=== PATIENT | female | born 1990 | race Hispanic/Latino ===

== ENCOUNTER → 2016-12-19 | Outpatient (CLI) | payer OTHER ==
[2016-12-19 14:50] LABS: BASO % 0.3 % (0.0-1.0); EOS # 0.2 K/mm3 (0.0-0.50); EOS % 2.8 % (0.0-3.0); LYMPH # 2.4 K/mm3 (1.5-6.5); LYMPH % 27.4 % (24.0-44.0); MEAN CORPUSCULAR HEMOGLOBIN 26.8 pg (27.0-33.0); MEAN CORPUSCULAR HGB CONC 32.1 g/dl (32.0-36.5); MEAN CORPUSCULAR VOLUME 83.5 fl (80.0-96.0); MONO # 0.3 K/mm3 (0.0-0.8); MONO % 3.6 % (0.0-5.0); NEUTROPHILS # 5.5 K/mm3 (1.8-7.7); WHITE BLOOD COUNT 8.7 K/mm3 (4.0-10.0)
[2016-12-19 14:58] LABS: ALBUMIN 3.8 GM/DL (3.2-5.2); ALBUMIN/GLOBULIN RATIO 1.12 (1.00-1.93); ALKALINE PHOSPHATASE 97 U/L (45-117); ALT/SGPT 13 U/L (12-78); ANION GAP 9 MEQ/L (8-16); AST/SGOT 14 U/L (15-37); BILIRUBIN,TOTAL 0.1 MG/DL (0.2-1.0); BLOOD UREA NITROGEN 13 MG/DL (7-18); CALCIUM LEVEL 8.6 MG/DL (8.5-10.1); CARBON DIOXIDE LEVEL 26 MEQ/L (21-32); CHLORIDE LEVEL 106 MEQ/L (98-107); CHOLESTEROL LEVEL 199 MG/DL (<200); CREATININE FOR GFR 0.61 MG/DL (0.55-1.02); FREE T4 0.86 NG/DL (0.76-1.46); GLOMERULAR FILTRATION RATE > 60.0 (>60); GLUCOSE, FASTING 84 MG/DL (70-105); SODIUM LEVEL 141 MEQ/L (136-145); TOTAL PROTEIN 7.2 GM/DL (6.4-8.2); TRIGLYCERIDES LEVEL 141 MG/DL (<150)
== END ==
LOC: M LAB 13:22
PROVIDERS: ATTEND Nurse Practitioner Adult Health
DX: E55.9 Vitamin D deficiency, unspecified (principal)

== ENCOUNTER 2017-04-06 23:52 | Emergency (ER) | payer OTHER ==
[~2017-04-06] VITALS: Ht 162.6 cm; Wt 100.0 kg
[2017-04-07] MEDS ORDERED: VITA1CAP40 PO (00:03)
[2017-04-07] MEDS ORDERED: ESCI10TA2 PO (00:03)
[2017-04-07] MEDS ORDERED: ONDANSETRON 4MG/2ML VIAL (J2405) IV ONE (00:30)
[2017-04-07] MEDS ORDERED: fentaNYL 100 MCG/2 ML INJECTION (J3010) IV ONE (00:30)
[2017-04-07 01:43] LABS: BASO % 0.3 % (0.0-1.0); EOS # 0.2 K/mm3 (0.0-0.50); EOS % 2.9 % (0.0-3.0); LARGE UNSTAINED CELL # 0.2 K/mm3 (0.0-0.4); LYMPH # 2.9 K/mm3 (1.5-6.5); LYMPH % 33.3 % (24.0-44.0); MEAN CORPUSCULAR HEMOGLOBIN 26.3 pg (27.0-33.0); MEAN CORPUSCULAR HGB CONC 32.5 g/dl (32.0-36.5); MEAN CORPUSCULAR VOLUME 80.8 fl (80.0-96.0); MONO # 0.3 K/mm3 (0.0-0.8); MONO % 3.7 % (0.0-5.0); NEUTROPHILS % 57.8 % (36.0-66.0); PLATELET COUNT, AUTOMATED 228 k/mm3 (150-450); WHITE BLOOD COUNT 8.7 K/mm3 (4.0-10.0)
--- NOTE | 2017-04-07 01:50 | REPUSA ---
CLINICAL HISTORY: Abdominal pain. TECHNIQUE: Realtime sonographic images were obtained in multiple projections. COMMENTS: The liver is of normal size, parenchyma demonstrates normal echogenicity. No discrete hepatic mass is seen. There is no intra or extrahepatic biliary ductal dilatation. CBD measures 2 mm. The gallbladder is ph ysiologically distended with evidence of calculi. The gallbladder wall is not thickened and there is no pericholecystic fluid. There is no abdominal ascites. The right kidney measures 11.3x5.1x5.7 cm, free of hydronephrosis. IMPRESSION: Cholelithiasis. Thank you for your kind referral of this patient.
[2017-04-07 01:57] LABS: CONTROL LINE HCG INT CTR LINE PRESENT
[2017-04-07 02:41] LABS: ALBUMIN 3.9 GM/DL (3.2-5.2); ALBUMIN/GLOBULIN RATIO 1.05 (1.00-1.93); ALKALINE PHOSPHATASE 87 U/L (45-117); ALT/SGPT 15 U/L (12-78); ANION GAP 9 MEQ/L (8-16); AST/SGOT 18 U/L (15-37); BILIRUBIN,DIRECT < 0.1 MG/DL (0.0-0.2); BILIRUBIN,TOTAL 0.2 MG/DL (0.2-1.0); BLOOD UREA NITROGEN 10 MG/DL (7-18); CALCIUM LEVEL 9.1 MG/DL (8.5-10.1); CARBON DIOXIDE LEVEL 24 MEQ/L (21-32); CHLORIDE LEVEL 108 MEQ/L (98-107); CREATININE FOR GFR 0.67 MG/DL (0.55-1.02); GLOMERULAR FILTRATION RATE > 60.0 (>60); GLUCOSE, FASTING 112 MG/DL (70-105); POTASSIUM SERUM 3.9 MEQ/L (3.5-5.1); SODIUM LEVEL 141 MEQ/L (136-145); TOTAL PROTEIN 7.6 GM/DL (6.4-8.2)
[2017-04-07 03:17] VITALS: BP 178/106
[2017-04-07] MEDS ORDERED: PERC5TAB12 PO (03:26)
[2017-04-07] MEDS ORDERED: ZOFR4TAB3 PO (03:27)
[2017-04-07] MEDS ORDERED: NORCO 5/325MG TABLET (BULK FOR ED) PO ONE (03:30)
[2017-04-07] MEDS ORDERED: MORPHINE 4 MG/ML 1ML SYRINGE IV ONE (03:30)
--- NOTE | 2017-04-07 20:26 | ECGEPIP ---
Stationary ECG Study [facility] - ED Test Date: 2017-04-07 Pat Name: YAEL LR Department: Room: - Gender: F Batter Out: mark anthony : 1990 Requested By: DEJAH Turcios Order Number: [id number] Reading MD: Merry Ordaz Measurements Intervals Mamou Rate: 80 P: 16 NH: 170 QRS: 20 QRSD: 89 T: 29 QT: 355 QTc: 412 Interpretive Statements SINUS RHYTHM NO PRIOR FOR COMPARISON Electronically Signed On 04-07-2017 20:26:21 EDT by Merry Ordaz
== END 2017-04-07 04:02 | disposition home or self-care (01) ==
LOC: M ED 23:52
DX: K81.9 Cholecystitis, unspecified (principal); Z98.84 Bariatric surgery status
CPT/HCPCS: 76705; 80048; 80076; 81001; 83690; 84703; 85025; 93000; 93041; 96374; 96375; 99284; J2405; J3010

== ENCOUNTER 2017-04-23 13:41 | Day surgery (SDC) | payer OTHER ==
[~2017-04-23] VITALS: Ht 162.6 cm; Wt 99.8 kg
[~2017-04-23 13:41] MED LIST: BUPIVACAINE/EPIN 0.25% 30 ML VIAL As Ordered ONE; ESCI10TA2 PO; PERC5TAB12 PO; VITA1CAP40 PO; ZOFR4TAB3 PO
[2017-04-23] MEDS ORDERED: LR 1,000 ML IV SCH ×2 (13:45→17:00)
[2017-04-23] MEDS ORDERED: MIDAZOLAM INJ 2 MG/2 ML VIAL (J2250) As Ordered ONE (14:21)
[2017-04-23] MEDS ORDERED: fentaNYL 100 MCG/2 ML INJECTION (J3010) As Ordered ONE (14:21)
[2017-04-23 14:44] LABS: CONTROL LINE UCG INT CTR LINE PRESENT
[2017-04-23] MEDS ORDERED: HYDROmorphone HCL 2 MG/ML 1ML VIAL (J1170) As Ordered ONE (15:14)
[2017-04-23] MEDS ORDERED: ROCURONIUM BROMIDE 50 MG/5 ML VIAL/SYRINGE As Ordered ONE (15:28)
[2017-04-23] MEDS ORDERED: LIDOCAINE 2% INJ 100 MG/5 ML SDV (FOR ANES.) As Ordered ONE (15:28)
[2017-04-23] MEDS ORDERED: PROPOFOL 200 MG/20 ML VIAL As Ordered ONE (15:28)
[2017-04-23] MEDS ORDERED: KETOROLAC 60 MG/2 ML VIAL (J1885) As Ordered ONE (15:44)
[2017-04-23] MEDS ORDERED: dexameTHASONE 4 MG/ML 1ML VIAL (J1100) As Ordered ONE (15:44)
[2017-04-23] MEDS ORDERED: ONDANSETRON 4MG/2ML VIAL (J2405) As Ordered ONE (15:44)
[2017-04-23] MEDS ORDERED: PERCOCET 5MG/325MG TAB As Ordered ONE (16:43)
[2017-04-23] MEDS: PERCOCET 5MG/325MG TAB PO PRN ×2 (16:45→17:29)
[2017-04-23] MEDS ORDERED: ONDANSETRON 4MG/2ML VIAL (J2405) IV PRN (17:00)
[2017-04-23] MEDS ORDERED: fentaNYL 100 MCG/2 ML INJECTION (J3010) IV PRN (17:00)
[2017-04-23] MEDS ORDERED: NORCO, ANEXSIA 5/325MG TABLET (HYDROcodone/ACETAMINOPHEN) PO PRN (18:45)
[2017-04-23 19:30] VITALS: BP 138/73
--- NOTE | 2017-04-24 07:46 | RO ---
DATE OF PROCEDURE: 04/23/2017 PREOPERATIVE DIAGNOSIS: Chronic cholecystitis. POSTOPERATIVE DIAGNOSIS: Chronic cholecystitis. PROCEDURE: Laparoscopic cholecystectomy. SURGEON: Dr. Froilan Meza ASSISTANT DIRECTOR OF RESIDENCE LIFE: None. ANESTHESIA: General: ESTIMATED BLOOD LOSS: 5 mL COMPLICATIONS: None. INDICATIONS FOR PROCEDURE: The patient is a 26-year-old female who presents with chronic right upper quadrant abdominal pain found to have likely chronic cholecystitis. Recommendation to proceed with laparoscopic and possible open cholecystectomy. Risks and benefits of the procedure not limited but including bleeding, infection, hernia formation, damage to surrounding structure, need further surgery were discussed in detail with the patient. Informed was obtained and the procedure was planned. DESCRIPTION OF PROCEDURE: The patient brought back to operating room 3. After sufficient sedation the abdomen sterilely prepped and draped. Time-out was done to confirm proper patient and proper procedure. Following that a stab incision was made in the left lower quadrant. Veress needle was started and the abdomen was insufflated to 50 mmHg. Next a 5 mm supraumbilical incision made and a 5 mm Optiview port was used to gain access to the abdomen. Once the abdomen was entered, Veress needle site was examined. There were no signs of any injury. Veress needle was then removed. An 11 mm port placed subxiphoid, two 5 mm ports in the right upper quadrant. Fundus of gallbladder grasped, elevated up towards right shoulder. Cystic duct and cystic artery were both dissected free using combination of blunt and sharp dissection. Once they were both clearly identified, they were both doubly clipped and cut. Gallbladder was then removed from gallbladder fossa using electrocautery. Once the gallbladder was removed, it was taken out in the subxiphoid port site 10 mm EndoCatch bag. Once the gallbladder was removed, right upper quadrant was examined to confirm hemostasis. The abdomen was then desufflated. Skin incisions closed with #4-0 Vicryl subcuticular sutures. The abdomen cleaned and dried. Steri-Strips, 4x4 and tape were applied.
== END 2017-04-23 20:20 | disposition home or self-care (01) ==
LOC: M SDC 13:41
PROVIDERS: ATTEND Surgery
DX: K80.10 Calculus of gallbladder with chronic cholecystitis without obstruction (principal); F41.9 Anxiety disorder, unspecified; F32.9 Major depressive disorder, single episode, unspecified; E55.9 Vitamin D deficiency, unspecified; R51 Headache; G47.30 Sleep apnea, unspecified; Z98.84 Bariatric surgery status